=== PATIENT | male | born 1960 | race Caucasian/White ===

== ENCOUNTER → 2020-05-14 | Outpatient (CLI) | payer OTHER ==
--- NOTE | 2020-05-14 10:19 | FL ---
EXAMINATION TYPE: FL UGI air w KUB DATE OF EXAM: 05/14/2020 COMPARISON: NONE HISTORY: Heartburn and reflux-like symptoms for 6 to 7 months. TECHNIQUE: A double contrast UGI study is attempted. Total 59 seconds fluoroscopic time utilized dur ing procedure. 64 spot images saved to PACS. FINDINGS: Senior Data Quality Analyst image of the abdomen shows no gross abnormality. The esophagus shows satisfactory motility and emptying into the stomach. Small sliding-type hiatal he rnia. No stricture or intraluminal mass. The stomach shows poor distensibility with moderate diffuse gastric fold prominence greatest in the f undus. No focal ulcer disease or intraluminal mass clearly identified. 6 a few episodes of gastroesop hageal reflux into the distal one half of the esophagus noted during real-time performance of study. The duodenal bulb, sweep, and proximal small bowel loops are within normal limits. IMPRESSION: Suboptimal study, moderate diffuse gastritis. Small sliding-type hiatal hernia. Mild to m oderate gastroesophageal reflux.
--- NOTE | 2020-05-14 13:35 | P.STRESS ---
- Stress Test Note Stress Test Results/Findings: Exam Performed: stress echo exercise Exam Date: 05/14/20 Reason for Exam: ABN ECG Height: 5 ft 8 in Weight: 77 kg Protocol: STRESS ECHO Stage: 4 Duration of Exercise: 10:30 Resting Heart Rate: 70 Resting Blood Pressure: 154/100 Maximum Achieved Heart Rate: 178 Maximum Achieved Blood Pressure: 197/99 85% PMHR: 138 100% PMHR: 162 METS: 12.1 Technologist Comment: Stress Test Results/Findings: Patient underwent exercise stress echo with a Tej protocol treadmill stress test. Patient exercised into Stage 4 for a total of 10 minutes 30 seconds reaching a total of 12.1 METS. Patient's maximum heart rate was 178 which represented 100 % age-predicted maximum heart rate. Stress EKG portion: At baseline patient's EKG showed normal sinus rhythm, normal axis, nonspecific T-wave flattening in lead 3. At peak exercise, EKG showed nonspecific 0.[address] depression in inferior lateral leads. Stress echo portion: 2-D echocardiogram was performed in the parasternal long, personal short, apical 2 and apical four-chamber views at rest, peak exercise and in recovery. At baseline, echocardiogram showed left ventricular ejection fraction 65 % without wall motion abnormalities. With peak exercise, echocardiogram shows improvement in left ventricular ejection fraction, increase contractility, decrease in left ventricular dimension without wall motion abnormalities consistent with a normal response to exercise. Conclusions: 1. Normal EKG and echo response to exercise without evidence of inducible ischemia. 2. Good exercise capacity.
== END | disposition home or self-care (01) ==
LOC: RADUSWWP 09:06
PROVIDERS: ATTEND Family Medicine
DX: K44.9 Diaphragmatic hernia without obstruction or gangrene (principal); K29.70 Gastritis, unspecified, without bleeding; K21.9 Gastro-esophageal reflux disease without esophagitis; R94.31 Abnormal electrocardiogram [ECG] [EKG]
CPT/HCPCS: 74246; 93351

== ENCOUNTER → 2020-07-28 | Outpatient (CLI) | payer OTHER ==
--- NOTE | 2020-07-28 19:06 | MR ---
EXAMINATION TYPE: MR shoulder RT wo con DATE OF EXAM: 07/28/2020 COMPARISON: None HISTORY: Right shoulder pain Multiplanar multiecho imaging of the right shoulder was performed without contrast. The biceps tendon is intact. There is moderate shoulder joint effusion. There is fluid around the biceps tendon. Subsc apularis tendon is intact. The glenoid angus appear intact. The supraspinatus tendon is intact. There is no retraction. The AC joint is intact. I see no subacromial impingement. I see no bony destructiv e process. There is hypertrophic spurring at the AC joint. There are small degenerative cysts at the greater tuberosity of the humerus. IMPRESSION: No evidence of rotator cuff tear. No fracture. Moderate shoulder joint effusion consistent with some nonspecific synovitis.
== END | disposition home or self-care (01) ==
LOC: RADMRIMAIN 14:02
PROVIDERS: ATTEND Orthopaedic Surgery Sports Medicine
DX: M25.411 Effusion, right shoulder (principal); S46.091A Other injury of muscle(s) and tendon(s) of the rotator cuff of right shoulder, initial encounter